=== PATIENT | female | born 1995 | race Caucasian/White ===

== ENCOUNTER → 2020-06-10 | Day surgery (SDC) | payer OTHER ==
[2020-06-07 10:38] LABS: HEMATOCRIT 43.8 % (36.0-47.0); HEMOGLOBIN 15.4 g/dL (12.0-15.5); MEAN CORPUSCULAR HEMOGLOBIN 31.5 pg (27.0-33.4); MEAN CORPUSCULAR HGB CONC 35.1 g/dL (32.0-36.0); MEAN CORPUSCULAR VOLUME 90 fl (80-97); PLATELET COUNT 195 10^3/uL (150-450); RED BLOOD COUNT 4.87 10^6/uL (3.72-5.28); RED CELL DISTRIBUTION WIDTH 12.8 % (11.5-14.0); WHITE BLOOD COUNT 5.6 10^3/uL (4.0-10.5)
[2020-06-07 10:41] LABS: APPEARANCE,URINE CLEAR; BILIRUBIN,URINE NEGATIVE (NEGATIVE); COLOR,URINE YELLOW; GLUCOSE, URINE NEGATIVE (NEGATIVE); KETONES,URINE 20 mg/dL (NEGATIVE); LEUKOCYTE ESTERASE,URINE NEGATIVE (NEGATIVE); NITRITE,URINE NEGATIVE (NEGATIVE); PROTEIN,URINE NEGATIVE (NEGATIVE); URINE SPECIFIC GRAVITY 1.009; UROBILINOGEN,URINE NEGATIVE mg/dL (<2.0)
[2020-06-07 11:13] LABS: ANION GAP 12 (5-19); BLOOD UREA NITROGEN 11 mg/dL (7-20); CALCIUM 9.7 mg/dL (8.4-10.2); CARBON DIOXIDE 24 mmol/L (22-30); CHLORIDE 105 mmol/L (98-107); GLUCOSE 85 mg/dL (75-110); POTASSIUM 4.9 mmol/L (3.6-5.0)
[2020-06-07 15:13] VITALS: BP 108/88
[~2020-06-10] MED LIST: CLINDAMYCIN 600 MG/D5W RTU 600 MG/50 ML RTUPB IV PRN; LACTATED RINGERS 1000 ML IV PRN; LIDOCAINE 0.5% INJ-PF (5 MG/ML) 50 ML SDV SUBCUT PRN; SCOPOLAMINE HYDROBROMIDE 1.5 MG PATCH.TD72 TD PRN
== END ==
LOC: OROUT 10:09
PROVIDERS: ATTEND Orthopaedic Surgery
DX: Z03.818 Encounter for observation for suspected exposure to other biological agents ruled out (principal); Z88.0 Allergy status to penicillin
CPT/HCPCS: 36415; 85027; 87635; 80048; 81001; C9803

== ENCOUNTER 2020-06-13 13:59 | Day surgery (SDC) | payer OTHER ==
[~2020-06-13 13:59] MED LIST changes: +DEXAMETHASONE SOD PHOSPHATE INJ 4 MG/1 ML VIAL ONE; +FENTANYL CITRATE INJ/PF 100 MCG/2 ML AMPUL ONE; +MIDAZOLAM 2 MG/2 ML INJ ONE; +ONDANSETRON HCL INJ/PF 4 MG/2 ML SDV ONE; +PROPOFOL INJ 200 MG/20 ML VIAL IV ONE; -SCOPOLAMINE HYDROBROMIDE 1.5 MG PATCH.TD72 TD PRN
[2020-06-13] MEDS ORDERED: FENTANYL CITRATE INJ/PF 100 MCG/2 ML AMPUL ONE (14:13)
[2020-06-13] MEDS ORDERED: SCOPOLAMINE HYDROBROMIDE 1.5 MG PATCH.TD72 ONE (14:49)
[2020-06-13] MEDS ORDERED: CLINDAMYCIN 600 MG/D5W RTU 600 MG/50 ML RTUPB IV ONE (14:50)
[2020-06-13] MEDS ORDERED: DIPHENHYDRAMINE HCL 50 MG/ML VIAL IV PRN (15:27)
[2020-06-13] MEDS ORDERED: MORPHINE SULFATE 10 MG/ML INJ IV PRN ×2 (15:27→17:51)
[2020-06-13] MEDS ORDERED: PROMETHAZINE HCL INJ 25 MG/1 ML VIAL IV PRN ×2 (15:27)
[2020-06-13] MEDS ORDERED: MEPERIDINE HCL/PF INJ 25 MG/1 ML DISP.SYRIN IV PRN (15:27)
[2020-06-13] MEDS ORDERED: ONDANSETRON HCL INJ/PF 4 MG/2 ML SDV IV PRN ×2 (15:27→17:51)
[2020-06-13] MEDS ORDERED: FENTANYL CITRATE INJ/PF 100 MCG/2 ML AMPUL IV PRN ×3 (15:27)
[2020-06-13] MEDS ORDERED: BUPIVACAINE HCL 0.5 % INJ/PF 30 ML SDV ONE (16:42)
[2020-06-13] MEDS ORDERED: OXYCODONE-ACETAMINOPHEN 5-325 MG TABLET PO PRN (17:51)
--- NOTE | 2020-06-13 17:51 | Operative Report ---
Operative Report DATE OF SURGERY: 06/13/20 PREOPERATIVE DIAGNOSIS: left 3rd intra-articular MCP joint proximal phalanx fra cture POSTOPERATIVE DIAGNOSIS: same OPERATION: ORIF left 3rd intra-articular MCP joint proximal phalanx base fracture SURGEON: RBITTANY RICE ANESTHESIA: GA COMPLICATIONS: None ESTIMATED BLOOD LOSS: Minimal PROCEDURE: Indication for above procedure: 25-year-old female who sustained a crush injury to her left middle finger. 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 Patient was then referred to discuss possible treatment options after we discussed treatment options including risk and benefits decision was made to proceed with operative intervention. Procedure In Detail: Patient was seen and evaluated in the preoperative holding area. The upper extremity was initialized and marked. Patient received clindamycin IV for bacterial prophylaxis. Patient was taken back to the operative room where transferred to the operative table and placed under general anesthesia. Once they were adequately anesthetized a nonsterile tourniquet was placed on the upper extremity. A surgical team debriefing was performed ensuring all instrumentation was available, the surgical procedure was discussed with possible concerns reviewed. The upper extremity was prepped with chlorhexidine and alcohol and draped in a sterile fashion. A timeout was done identifying correct patient, procedure and extremity everyone in attendance agree with this and verbalized no concerns. The extremity was exsanguinated the tourniquet was inflated to 250 mmHg. Close reduction was performed to the digit which corrected the malrotation. However later continue the intra-articular step-off and thus skin incision was made along the dorsal ulnar aspect of the proximal phalanx blunt dissection was performed. Extensor mechanism was then split longitudinally to expose the fracture. There was a comminuted fracture with a large segment dorsal ulnarly which was then split in the coronal plane volar radially. This was then reduced under direct visualization. I then proceeded with interfragmentary fixation. Using interfragmentary technique a 1.7 mm cortex screw was placed which provided good compression. A second 1.7 mm cortex screw approximately 2 screw heads proximally was placed perpendicular to the fracture. Final fixation was then completed along the articular surface with a 1.2 mm cortex screw. Digit was then stressed under fluoroscopy to ensure adequate stability. There was no evidence of residual step-off. With wrist tenodesis there was no evidence of malrotation which was confirmed with direct visualization of the nail plates which was noted to be malrotated preoperatively. There is no crepitus with range of motion. Wound was then copiously irrigated with normal saline. Tourniquet was deflated. And a peripheral bleeding was controlled with bipolar cautery. Extensor mechanism was closed with interrupted 4-0 Monocryl suture. Skin was closed subcuticular 4-0 Monocryl reinforced with Dermabond and Steri-Strips. 10 cc of 0.5% ropivacaine without epinephrine was injected for postoperative pain control. Patient was placed in a radial gutter splint. Sponge counts, instrument counts, needle counts were correct. Patient was then awoken from anesthesia. Transferred from the operating room table to the operating room stretcher. There was no intraoperative complications patient tolerated procedure well stable to PACU. Implants: [place] 1.7 and 1.2 cortex screws. Postop plan: Patient follow in the office in 2 weeks for wound check. Will be started on occupational therapy this week for a radial gutter splint may begin PIP joint range of motion and gentle MP joint range of motion but no grasping or lifting.
--- NOTE | 2020-06-13 17:54 | Discharge Summary ---
Discharge Summary (SDC) - Discharge Final Diagnosis: Right middle finger proximal phalanx fracture Date of Surgery: 06/13/20 Discharge Date: 06/13/20 Condition: Good Treatment or Instructions: Schedule Follow Up w/ Dr. Trevin Valle @ [facility] to be seen in 10-14 days or as scheduled [place]: Tensed: [place]: Ice and elevate Keep splint clean/dry/intact, do not remove. If your fingers become numb please unwrap the Archie wrap but leave the splint in place, if the sensation does not return within 30 minutes please return to the emergency department. May begin finger range of motion attempting to make full fist. Please use ibuprofen (Motrin or Advil) 600-800 mg every 8 hours as needed for pain or fever DO NOT TAKE w/ TORADOL may use once TORADOL complete. You may also use acetaminophen (Tylenol) 1000 mg every 4-6 hours as needed for pain or fever. Please be aware that many medications contain acetaminophen, do not exceed a total of 1000 mg of acetaminophen every 6 hours. If ibuprofen and acetaminophen are not sufficient for your pain you may take the Percocet/[place]. Please be aware that the Percocet/[place] does contain Tylenol. Stool softener of choice when on pain medication. USE OF [id number]-[id number] IBUPROFEN: Ibuprofen (Advil, Nuprin, Medipren, Motrin IB) is a medication for fever and pain control. In addition, it has anti- inflammatory effects which may be beneficial, especially in the treatment of injuries. It's best to take ibuprofen with food. Persons with ulcer disease or allergy to aspirin should notify their physician of this before taking ibuprofen. Ibuprofen can be given every four to six hours, for a total of four doses daily. Age Pain or fever dose Antiinflammatory dose 6-8 yr 200 mg (1 tab) 200 mg (1 tab) 9-11 yr 200 mg (1 tab) 200-400 mg (1-2 tab) 11-14 yr 200-400 mg (1-2 tab) 400 mg (2 tab) 15-adult 400 mg (2 tab) 600 mg (3 tab) ORAL NARCOTIC MEDICATION: You have been given a prescription for pain control. This medication is a narcotic. It's best taken with food, as nausea can result if taken on an empty stomach. Don't operate machinery or drive within six hours of taking this medication. Do not combine this medicine with alcohol, or with any medication which can cause sedation (such as cold tablets or sleeping pills) unless you get permission from the physician. Narcotics tend to cause constipation. If possible, drink plenty of fluids and eat a diet high in fiber and fruits. Please be aware that prescription narcotics also have the potential for abuse. People become addicted to these medications because of the general sense of wellbeing that they induce. This feeling along with a significant reduction in tension, anxiety, and aggression provides a stimulating seductive quality to these drugs. Once your pain is under control, we encourage you to discard your unused narcotics. Prescriptions: Oxycodone HCl/Acetaminophen [Percocet 5-325 mg Tablet] 1 tab PO Q6 PRN #25 tab PRN Reason: Discharge Diet: As Tolerated Respiratory Treatments at Home: Deep Breathing/Coughing, Incentive Spirometer Discharge Activity: No Lifting Over 10 Pounds, No Lifting/Push/Pulling Report the Following to Your Physician Immediately: Fever over 101 Degrees, Unus ual Bleeding, Redness, Swelling, Warmth, Increased Soreness
--- NOTE | 2020-06-13 17:59 | RADIOLOGY REPORT (SQ) ---
EXAM DESCRIPTION: NO CHG FLUORO; FINGER LEFT IMAGES COMPLETED DATE/TIME: 06/13/2020 5:45 pm REASON FOR STUDY: ORIF L 3RD DIGIT COMPARISON: None. FLUOROSCOPY TIME: 43 seconds 4 Images saved to PACS LIMITATIONS: None. PROCEDURE: ORIF left 3rd digit FINDINGS: Images from fluoro document placement of 3 screws in the base of the 3rd proximal phalanx. IMPRESSION: ORIF left 3rd digit. Refer to operative note for further information. COMMENT: PQRS 6045F: Fluoroscopy time of the procedure is documented in the report. TECHNICAL DOCUMENTATION: JOB ID: [id number] 2010 [employer]- All Rights Reserved Reading location - IP/workstation name: [email or web address]
--- NOTE | 2020-06-13 17:59 | RADIOLOGY REPORT (SQ) ---
EXAM DESCRIPTION: NO CHG FLUORO; FINGER LEFT IMAGES COMPLETED DATE/TIME: 06/13/2020 5:45 pm REASON FOR STUDY: ORIF L 3RD DIGIT COMPARISON: None. FLUOROSCOPY TIME: 43 seconds 4 Images saved to PACS LIMITATIONS: None. PROCEDURE: ORIF left 3rd digit FINDINGS: Images from fluoro document placement of 3 screws in the base of the 3rd proximal phalanx. IMPRESSION: ORIF left 3rd digit. Refer to operative note for further information. COMMENT: PQRS 6045F: Fluoroscopy time of the procedure is documented in the report. TECHNICAL DOCUMENTATION: JOB ID: [id number] 2010 [employer]- All Rights Reserved Reading location - IP/workstation name: [email or web address]
[2020-06-13] MEDS ORDERED: OXYCODONE-ACETAMINOPHEN 5-325 MG TABLET ONE (18:30)
[2020-06-13 19:41] VITALS: BP 96/56
== END 2020-06-13 19:40 | disposition home or self-care (01) ==
LOC: OROUT 13:59
PROVIDERS: ATTEND Orthopaedic Surgery
DX: S63.263A Dislocation of metacarpophalangeal joint of left middle finger, initial encounter (principal); W23.0XXA Caught, crushed, jammed, or pinched between moving objects, initial encounter; Z88.0 Allergy status to penicillin; Z03.818 Encounter for observation for suspected exposure to other biological agents ruled out
CPT/HCPCS: 81025; 73140; 26746; C1713 ×2; J2250; J3490; J1100; J3010; J2405; J2704; 01830